=== PATIENT | male | born 1940 | race Caucasian/White ===

== ENCOUNTER 2017-09-26 16:24 | Emergency (ER) | payer MEDICARE, OTHER ==
[2017-09-26 16:38] LABS: BASOPHILS % (AUTO) 0 % (0-3); EOSINOPHILS % (AUTO) 0 % (0-9); HEMATOCRIT 40 % (39-53); HEMOGLOBIN 13.1 gm/dl (13.5-17.7); LYMPHOCYTES % (AUTO) 11.3 % (10-50); MEAN CORPUSCULAR HEMOGLOBIN 26.1 pg (27.0-32.0); MONOCYTES % (AUTO) 6.4 % (0-12); NEUTROPHILS % (AUTO) 81.4 % (37-80)
[2017-09-26 16:42] LABS: MEAN CORPUSCULAR VOLUME 79 fL (80-100)
[2017-09-26 16:48] LABS: INR 1.14 (0.86-1.12)
[2017-09-26] MEDS: SODIUM CHLORIDE 0.9% 1000ML 1,000 ML IV SCH ×2 (16:50→17:46)
[2017-09-26] MEDS ORDERED: MORPHINE SULFATE 10 MG/ML SOL IV ONE (16:53)
[2017-09-26 16:55] VITALS: RESP 20
[2017-09-26] MEDS ORDERED: MORPHINE SULFATE 10 MG/ML SOL ONE (16:55)
[2017-09-26 17:10] LABS: ALBUMIN 2.8 gm/dl (3.4-5.0); BILIRUBIN,TOTAL 0.3 mg/dl (0.2-1.0); CALCIUM 8.2 mg/dl (8.5-10.1); CREATININE 1.88 mg/dl (0.80-1.30); POTASSIUM 4.3 mMol/L (3.5-5.1); TOTAL PROTEIN 7.6 gm/dl (6.4-8.2)
[2017-09-26] MEDS ORDERED: SODIUM CHLORIDE 0.9% 1000ML 1,000 ML IV ONE (18:01)
[2017-09-26 18:34] LABS: APPEARANCE,URINE Clear; BILIRUBIN,URINE NEGATIVE (NEGATIVE); COLOR,URINE Yellow; GLUCOSE, URINE (UA) NEGATIVE (NEGATIVE); KETONES,URINE NEGATIVE (NEGATIVE); LEUKOCYTE ESTERASE ,URINE NEGATIVE (NEGATIVE); NITRATE,URINE NEGATIVE (NEGATIVE); OCCULT BLOOD,URINE NEGATIVE (NEG-TRACE); UROBILINOGEN,URINE 0.2 (0.2-1.0 EU)
[2017-09-26 18:35] LABS: BACTERIA TRACE (< 1+); CRYSTALS NEGATIVE (0-3 AVE/HPF); EPITHELIAL CELLS 0-1 (SQUAMOUS); RBC,URINE 0-2 (0-3AV/HPF); WBC,URINE 0-2 (0-5AV/HPF)
[2017-09-26] MEDS ORDERED: HYDROMORPHONE HCL 2 MG/ML SOL IV ONE ×2 (18:44)
[2017-09-26] MEDS ORDERED: HYDROMORPHONE HCL 2 MG/ML SOL ONE (18:46)
[2017-09-26 19:57] VITALS: BP 119/84; PULSE 99; TEMP 98.1; O2SAT 93
== END 2017-09-26 20:21 | disposition short-term general hospital (02) | DRG 536 ==
LOC: ED 16:24
DX: S72.002A Fracture of unspecified part of neck of left femur, initial encounter for closed fracture (principal); R40.2142 Coma scale, eyes open, spontaneous, at arrival to emergency department; W19.XXXA Unspecified fall, initial encounter; R40.2362 Coma scale, best motor response, obeys commands, at arrival to emergency department; R40.2252 Coma scale, best verbal response, oriented, at arrival to emergency department
CPT/HCPCS: 73501; 80053; 81001; 85025; 85610; 93005; 96365; 96366; 96374; 96375; 99284; 99285; J1170; J2270

== ENCOUNTER 2018-05-16 19:21 | Emergency (ER) | payer MEDICARE, OTHER ==
[2018-05-16 19:37] VITALS: TEMP 97.5
[2018-05-16 20:12] LABS: BASOPHILS % (AUTO) 1 % (0-3); EOSINOPHILS % (AUTO) 1 % (0-9); HEMATOCRIT 39 % (39-53); HEMOGLOBIN 12.7 gm/dl (13.5-17.7); LYMPHOCYTES % (AUTO) 12.4 % (10-50); MEAN CORPUSCULAR HEMOGLOBIN 27.1 pg (27.0-32.0); MEAN CORPUSCULAR HGB CONC 32.2 gm/dl (32.0-36.0); MEAN CORPUSCULAR VOLUME 84 fL (80-100); MONOCYTES % (AUTO) 3.7 % (0-12); NEUTROPHILS % (AUTO) 82.8 % (37-80)
[2018-05-16 20:21] LABS: INR 1.1 (0.86-1.12)
[2018-05-16 20:34] LABS: ALBUMIN 2.9 gm/dl (3.4-5.0); ALKALINE PHOSPHATASE 92 IU/L (46-116); ALT 11 IU/L (14-63); AST 9 IU/L (15-37); BILIRUBIN,TOTAL 0.3 mg/dl (0.2-1.0); BLOOD UREA NITROGEN 14 mg/dl (7-18); CALCIUM 8.9 mg/dl (8.5-10.1); CARBON DIOXIDE 29.4 mEq/L (21-32); CHLORIDE 102 mMol/L (98-107); CREATININE 1.63 mg/dl (0.80-1.30); GLUCOSE 125 mg/dl (74-106); SODIUM 140 mMol/L (136-145); TOTAL PROTEIN 7.4 gm/dl (6.4-8.2); TROP I < 0.017 ng/ml (0.000-0.056)
[2018-05-16] MEDS ORDERED: SODIUM CHLORIDE 0.9% 500 ML 500 ML IV ONE (20:42)
[2018-05-17 01:14] VITALS: O2SAT 95
[2018-05-17 01:15] VITALS: BP 113/71; PULSE 65; RESP 20
== END 2018-05-16 21:40 | disposition home or self-care (01) | DRG 312 ==
LOC: ED 19:21
DX: R55 Syncope and collapse (principal); I95.9 Hypotension, unspecified; E78.5 Hyperlipidemia, unspecified; R40.2362 Coma scale, best motor response, obeys commands, at arrival to emergency department; R40.2142 Coma scale, eyes open, spontaneous, at arrival to emergency department; R40.2252 Coma scale, best verbal response, oriented, at arrival to emergency department
CPT/HCPCS: 36415; 80053; 84484; 85025; 85610; 93005; 96365; 99284; 99285